=== PATIENT | female | born 1960 | race Caucasian/White ===

== ENCOUNTER → 2018-02-23 | Day surgery (SDC) | payer OTHER ==
[~2018-02-23] MED LIST: ALEVE220 MG PO; GABAPENTIN100 MG PO; GLUCOPHAGE500 MG PO; IBUPROFEN 600600 M1 PO; LIPITOR10 MG PO; LISINOPRIL-HCT1 EAC2 PO; NAPROSYN500 MG PO; NOVOLOG100 UNIT/1 SUBQ; OS-CAL 500+D31 EAC1 PO; OXYGEN MISCELL; SINGULAIR 10 MG10 M1 PO; SYMBICORT160 MCG/4. IH; SYNTHROID25 MC1 PO; TRAMADOL 50 MG50 MG PO; TRESIBA FL100 UNIT/1 SUBQ; VENTOLIN HFA INH8 GM IH
--- NOTE | ~2018-02-23 | PROC ---
[address] [address] PROCEDURE REPORT Name: HANG LANDIS Room: [facility]#: [id number] Admission: 02/23/18 Attend Phys: Micheal Carpio MD Discharge: Date of : 58 Report #: [id number] THIS REPORT FOR: //name// For GI report, please see the Provation report in Perceptive 7 content. By: 0640Medical Records Staff [facility] /DREAD
[2018-02-23 09:29] LABS: HEMATOCRIT 41.7 % (37.0-47.0); HEMOGLOBIN 13.4 gm/dL (12.0-15.0); MCH 30.7 pg (26.0-34.0); MCHC 32.2 g/dL (28.0-37.0); MCV 95.1 fL (80.0-100.0); MPV 8.6 fl. (7.2-11.1); RBC 4.38 mil/uL (4.20-5.00); RDW-CV 14.2 % (10.5-14.5); WBC 9.4 thou/uL (4.0-11.0)
[2018-02-23 09:45] LABS: CALCIUM 9.3 mg/dL (8.5-10.1); CREATININE 0.9 mg/dL (0.6-1.3)
[2018-02-23 09:50] LABS: ALBUMIN 3.6 g/dL (3.4-5.0); TOTAL BILIRUBIN 0.4 mg/dL (<0.1-1.0); TOTAL PROTEIN 8.3 g/dL (6.4-8.2)
--- NOTE | 2018-02-23 16:36 | EKG ---
[place] [address] ELECTROCARDIOGRAM REPORT Name: HANG LANDIS Room: [facility]#: [id number] Admission: 02/23/18 Attend Phys: Micheal Carpio MD Discharge: Date of : 58 Report #: [id number] THIS REPORT FOR: //name// [facility] Test Date: 2018-02-23 Test Time: 09:10:05 Pat Name: HANG LANDIS Department: Room: Gender: F Dragline Operator: : 1960 Requested By: Micheal Carpio Order Number: [id number] Saira MD: Sheldon Terry Measurements Intervals [place] Rate: 100 P: 70 AK: 189 QRS: 68 QRSD: 96 T: -8 QT: 364 QTc: 470 Interpretive Statements Sinus tachycardia Ventricular premature complex Borderline repolarization abnormality Baseline wander in lead(s) II,III,aVR,aVL,aVF,V1,V2,V3,V4,V5,V6 No previous ECG available for comparison Electronically Signed On 02-23-2018 16:36:00 SHAPER OPERATOR by Sheldon Terry [email or web address] <ELECTRONICALLY SIGNED> By: Sheldon Terry MD, FACC 02/23/18 1636 0910 0910 Sheldon Terry MD, FAC /EPI
--- NOTE | 2018-02-28 11:07 | PATH ---
[facility] [address] [place] [address] PATHOLOGY RPT PROCEDURE Name: ZOE LANDIS Room: [facility] Mario Alberto#: [id number] Admission: 02/23/18 Date of : 58 Discharge: Report #: [id number] Path Case #: [id number] [facility] Accession Number: [id number] . 01 Material submitted: . SIGMOID COLON BIOPSY . 01 Clinical history: . Screening . 02 Diagnosis: Sigmoid colon biopsy: - Chronic active colitis compatible with Crohn's disease, negative for viral inclusions and dysplasia. See comment (ANTIONETTE:janice; 02/26/2018) MBR/02/26/2018 . 02 Comment: Biopsies reveal benign colonic mucosa with evidence of chronic inflammation including basal lymphoplasmacytosis, crypt distortion, and focal Paneth cell metaplasia, as well as prominent active inflammation with cryptitis and neutrophils in the lamina propria. Basilar lymphoid follicles are present and a microgranuloma in association with localized acute inflammation is most consistent with a mucin granuloma. In the appropriate clinical context, the histologic features are compatible with Crohn's disease. . (ANTIONETTE:janice; 02/26/2018) . 02 Electronically signed: . Kodi Swann MD, Pathologist NPI- [id number] . 01 Gross description: . Received in formalin labeled "Zoe Landis, sigmoid colon biopsy, rule out Crohn's," are 2 segments of jaramillo soft tissue measuring 0.7 x 0.2 x 0.2 cm in aggregate dimensions and ranging from 0.3 to 0.4 cm in maximum dimension. The specimen is submitted entirely in cassette A1. (TSD; 02/23/2018) TOB/TOB . 02 Pathologist provided ICD-10: K50.90 . 02 CPT . 607119 Specimen Comment: A courtesy copy of this report has been sent to Specimen Comment: [phone], [place] [address] PATHOLOGY RPT PROCEDURE Name: ZOE LANDIS Room: [facility].#: [id number] Admission: 02/23/18 Date of : 58 Discharge: Report #: [id number] Path Case #: [id number] Specimen Comment: Report sent to / DR VIVAS Specimen Comment: A duplicate report has been generated due to demographic updates. Performed at: [address] [facility] [address], [place], [place] [id number] MD Víctor Guadarrama MD Phone: [phone] Performed at: [address] [facility] [address] [place], [place] [id number] MD Kodi Swann MD Phone: [phone]
== END | disposition home or self-care (01) ==
LOC: M.SUR 08:42
PROVIDERS: Internal Medicine Gastroenterology
DX: Z12.11 Encounter for screening for malignant neoplasm of colon (principal); K50.90 Crohn's disease, unspecified, without complications; K57.30 Diverticulosis of large intestine without perforation or abscess without bleeding; K52.9 Noninfective gastroenteritis and colitis, unspecified; I10 Essential (primary) hypertension; E11.9 Type 2 diabetes mellitus without complications; E03.9 Hypothyroidism, unspecified; E78.5 Hyperlipidemia, unspecified; J44.9 Chronic obstructive pulmonary disease, unspecified; G62.9 Polyneuropathy, unspecified; E66.01 Morbid (severe) obesity due to excess calories; Z98.890 Other specified postprocedural states; Z91.040 Latex allergy status; Z88.8 Allergy status to other drugs, medicaments and biological substances; Z79.899 Other long term (current) drug therapy

== ENCOUNTER → 2018-08-20 | Outpatient (CLI) | payer OTHER | LOC: M.RAD 10:51 | DX: Z12.31 Encounter for screening mammogram for malignant neoplasm of breast (principal) ==